=== PATIENT | female | born 2000 ===

== ENCOUNTER 2022-05-07 11:09 | Outpatient (CLI) | payer MEDICAID ==
[2022-05-07 11:54] VITALS: BP 119/74
--- NOTE | 2022-05-07 15:03 | Ultrasound Report ---
ULTRASOUND BIOPHYSICAL PROFILE INDICATION / CLINICAL INFORMATION: well being. COMPARISON: None available. FINDINGS: BREATHING MOVEMENT = 2 GROSS BODY MOVEMENT = 2 TONE = 2 QUALITATIVE AMNIOTIC FLUID VOLUME = 2 TOTAL BIOPHYSICAL SCORE = 03/31 AMNIOTIC FLUID INDEX (cm) = 3.6 PRESENTATION: Cephalic. HEART RATE (beats per minute): 145 IMPRESSION: 1. biophysical profile = 03/31 Signer Name: Abimael Lara MD Signed: 05/07/2022 2:59 PM Workstation Name: [id number]
== END 2022-05-07 13:59 | disposition home or self-care (01) ==
LOC: TRG 11:09 → APU 11:12 → TRG 13:59
PROVIDERS: ATTEND Obstetrics & Gynecology Gynecology
DX: O47.03 False labor before 37 completed weeks of gestation, third trimester (principal); Z3A.35 35 weeks gestation of pregnancy
CPT/HCPCS: 76819